=== PATIENT | female | born 2000 | race Caucasian/White ===

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

== ENCOUNTER 2021-06-30 14:24 | Emergency (ER) | payer OTHER ==
[~2021-06-30] VITALS: Wt 105.2 kg
[2021-06-30] MEDS ORDERED: CYCLOBENZAPRINE10 MG PO (17:06)
== END 2021-06-30 17:19 | disposition home or self-care (01) ==
LOC: ED 14:24
DX: S13.4XXA Sprain of ligaments of cervical spine, initial encounter (principal); V43.52XA Car driver injured in collision with other type car in traffic accident, initial encounter; Y93.89 Activity, other specified; Y92.89 Other specified places as the place of occurrence of the external cause; Y99.8 Other external cause status

== ENCOUNTER 2021-10-25 18:37 | Emergency (ER) | payer OTHER ==
[~2021-10-25] VITALS: Ht 160 cm; Wt 106.6 kg
[~2021-10-25 18:37] MED LIST changes: +CYCLOBENZAPRINE10 MG PO
== END 2021-10-25 20:11 | disposition home or self-care (01) ==
LOC: ED 18:37
DX: S93.401A Sprain of unspecified ligament of right ankle, initial encounter (principal); X50.1XXA Overexertion from prolonged static or awkward postures, initial encounter; Y93.01 Activity, walking, marching and hiking; Y92.89 Other specified places as the place of occurrence of the external cause; Y99.9 Unspecified external cause status

== ENCOUNTER 2021-12-10 09:46 | Emergency (ER) | payer OTHER | END 2021-12-10 12:25 | disposition home or self-care (01) | LOC: ED 09:46 | DX: S40.012A Contusion of left shoulder, initial encounter (principal); S20.212A Contusion of left front wall of thorax, initial encounter; Y04.2XXA Assault by strike against or bumped into by another person, initial encounter; Y93.89 Activity, other specified; Y92.128 Other place in nursing home as the place of occurrence of the external cause; Y99.0 Civilian activity done for income or pay ==

== ENCOUNTER 2021-12-15 15:52 | Emergency (ER) | payer OTHER | END 2021-12-15 17:33 | disposition home or self-care (01) | LOC: ED 15:52 | DX: U07.1 COVID-19 (principal); B34.9 Viral infection, unspecified ==

== ENCOUNTER 2022-05-17 15:40 | Emergency (ER) | payer OTHER ==
[~2022-05-17] VITALS: Wt 106.6 kg
[2022-05-17 18:24] LABS: BASO # 0.1 10*3/uL (0.0-0.1); BASO % 0.7 % (0.0-1.0); EOS # 0.1 10*3/uL (0.0-0.4); EOS % 0.5 % (1.0-4.0); HEMATOCRIT 40.1 % (37.0-47.0); LYMPH # 2.7 10*3/uL (1.3-4.4); LYMPH % 29.4 % (27.0-41.0); MEAN CELL VOLUME 85.7 fl (81.0-99.0); MEAN CORPUSCULAR HGB 28.8 pg (27.0-31.0); MEAN CORPUSCULAR HGB CONC 33.7 g/dl (33.0-37.0); MEAN PLATELET VOLUME 9.3 fl (9.6-12.3); MONO # 0.6 10*3/uL (0.1-1.0); MONO % 6.1 % (3.0-9.0); NEUT # 5.8 10*3/uL (2.3-7.9); NEUT % 62.9 % (47.0-73.0); PLATELET COUNT AUTOMATED 349 10*3/uL (130-400); RED BLOOD COUNT 4.68 10*6/uL (4.10-5.10); RED CELL DISTRI WIDTH 13.5 % (0-14.5); WHITE BLOOD COUNT 9.2 10*3/uL (4.8-10.8)
[2022-05-17 18:35] LABS: BILIRUBIN Negative (Negative); BLOOD Negative (Negative); CLARITY Clear (Clear); COLOR Yellow (Yellow); GLUCOSE Negative (Negative); KETONE Negative (Negative); LEUKO ESTERASE Negative (Negative); NITRITE Negative (Negative); PH 6.5 (4.5-8.0); SPECIFIC GRAVITY 1.015 (1.001-1.030); UROBILINOGEN 0.2 E.U./dl (0.0-1.0)
[2022-05-17 18:38] LABS: ALKALINE PHOSPHATASE 78 U/L (46-116); BUN 8 mg/dl (9-23); CHLORIDE 101 mmol/L (98-107); CREATININE 0.61 mg/dL (0.55-1.02); POTASSIUM 3.8 mmol/L (3.4-5.1); SGPT/ALT 9 U/L (10-49); SODIUM 135 mmol/L (136-145); TOTAL PROTEIN 7.7 gm/dL (6.0-8.0)
[2022-05-17 18:46] LABS: BACTERIA TRACE; WBC 0-2 wbc/hpf (0-5)
[2022-05-17] MEDS ORDERED: Ondansetron4 MG PO (19:10)
[2022-05-17] MEDS ORDERED: Fioricet 325 MG1 TAB PO (19:10)
== END 2022-05-17 20:07 | disposition home or self-care (01) ==
LOC: ED 15:40
PROVIDERS: Physician Assistant
DX: G44.89 Other headache syndrome (principal); F10.90 Alcohol use, unspecified, uncomplicated; Z20.822 Contact with and (suspected) exposure to COVID-19; M79.10 Myalgia, unspecified site; R53.83 Other fatigue

== ENCOUNTER 2022-08-03 01:51 | Emergency (ER) | payer OTHER ==
[~2022-08-03] VITALS: Ht 160 cm; Wt 104.3 kg
[~2022-08-03 01:51] MED LIST changes: +Fioricet 325 MG1 TAB PO; +Ondansetron4 MG PO
[2022-08-03] MEDS ORDERED: AMOXICILLIN500 M3 PO (02:25)
[2022-08-03] MEDS ORDERED: DEPO-PROVE150 MG/1 M IM (02:25)
[2022-08-03] MEDS ORDERED: NAPROSYN500 MG PO (03:35)
[2022-08-03] MEDS ORDERED: CYCLOBENZAPRINE10 MG PO (03:35)
== END 2022-08-03 04:00 | disposition home or self-care (01) ==
LOC: ED 01:51
DX: S29.012A Strain of muscle and tendon of back wall of thorax, initial encounter (principal); M62.830 Muscle spasm of back; Z98.890 Other specified postprocedural states; W01.0XXA Fall on same level from slipping, tripping and stumbling without subsequent striking against object, initial encounter; Y93.89 Activity, other specified; Y92.89 Other specified places as the place of occurrence of the external cause; Y99.8 Other external cause status

== ENCOUNTER 2022-10-30 12:54 | Emergency (ER) | payer OTHER ==
[~2022-10-30] VITALS: Ht 160 cm; Wt 108.9 kg
[~2022-10-30 12:54] MED LIST changes: +AMOXICILLIN500 M3 PO; +DEPO-PROVE150 MG/1 M IM; +NAPROSYN500 MG PO
== END 2022-10-30 13:54 | disposition home or self-care (01) ==
LOC: ED 12:54
DX: S93.401A Sprain of unspecified ligament of right ankle, initial encounter (principal); Z98.890 Other specified postprocedural states; X50.1XXA Overexertion from prolonged static or awkward postures, initial encounter; Y93.39 Activity, other involving climbing, rappelling and jumping off; Y92.89 Other specified places as the place of occurrence of the external cause; Y99.8 Other external cause status

== ENCOUNTER 2022-12-04 10:21 | Emergency (ER) | payer OTHER ==
[~2022-12-04] VITALS: Ht 160 cm; Wt 106.6 kg
[2022-12-04 10:54] LABS: BASO % 0.5 % (0.0-1.0); EOS % 0.2 % (1.0-4.0); HEMATOCRIT 40.3 % (37.0-47.0); LYMPH # 1.7 10*3/uL (1.3-4.4); LYMPH % 18.8 % (27.0-41.0); MEAN CELL VOLUME 85.4 fl (81.0-99.0); MEAN PLATELET VOLUME 9.6 fl (9.6-12.3); MONO # 0.6 10*3/uL (0.1-1.0); MONO % 6.5 % (3.0-9.0); NEUT # 6.5 10*3/uL (2.3-7.9); NEUT % 73.5 % (47.0-73.0); PLATELET COUNT AUTOMATED 352 10*3/uL (130-400); RED BLOOD COUNT 4.72 10*6/uL (4.10-5.10); RED CELL DISTRI WIDTH 12.6 % (0-14.5); WHITE BLOOD COUNT 8.8 10*3/uL (4.8-10.8)
[2022-12-04 11:00] LABS: BILIRUBIN Negative (Negative); BLOOD Negative (Negative); CLARITY Cloudy (Clear); COLOR Yellow (Yellow); GLUCOSE Negative (Negative); KETONE Trace (Negative); LEUKO ESTERASE 2+ (Negative); NITRITE Negative (Negative); PH 6.5 (4.5-8.0); SPECIFIC GRAVITY >= 1.030 (1.001-1.030)
[2022-12-04 11:27] LABS: ALKALINE PHOSPHATASE 73 U/L (46-116); BUN 10 mg/dl (9-23); CHLORIDE 108 mmol/L (98-107); LIPASE 28 U/L (12-53); POTASSIUM 3.7 mmol/L (3.4-5.1); TOTAL PROTEIN 7.9 gm/dL (6.0-8.0)
[2022-12-04 11:27] LABS: BACTERIA 2+
[2022-12-04 11:28] LABS: WBC 31-40 wbc/hpf (0-5)
[2022-12-04 11:32] LABS: SGPT/ALT < 7 U/L (10-49)
[2022-12-04] MEDS ORDERED: CIPRO500 MG PO (11:35)
== END 2022-12-04 11:49 | disposition home or self-care (01) ==
LOC: ED 10:21
PROVIDERS: Internal Medicine
DX: N39.0 Urinary tract infection, site not specified (principal); R11.2 Nausea with vomiting, unspecified; Z98.890 Other specified postprocedural states

== ENCOUNTER 2023-03-15 11:54 | Emergency (ER) | payer OTHER ==
[~2023-03-15] VITALS: Ht 162.5 cm; Wt 107.5 kg
[~2023-03-15 11:54] MED LIST changes: +CIPRO500 MG PO
== END 2023-03-15 15:57 | disposition home or self-care (01) ==
LOC: ED 11:54
DX: G43.909 Migraine, unspecified, not intractable, without status migrainosus (principal); R11.0 Nausea; Z98.890 Other specified postprocedural states

== ENCOUNTER 2023-04-19 12:39 | Emergency (ER) | payer OTHER ==
[~2023-04-19] VITALS: Ht 160 cm; Wt 108.9 kg
[2023-04-19] MEDS ORDERED: CYCLOBENZAPRINE10 MG PO (16:05)
== END 2023-04-19 16:12 | disposition home or self-care (01) ==
LOC: ED 12:39
DX: S29.012A Strain of muscle and tendon of back wall of thorax, initial encounter (principal); Z98.890 Other specified postprocedural states; X50.0XXA Overexertion from strenuous movement or load, initial encounter; Y93.89 Activity, other specified; Y92.89 Other specified places as the place of occurrence of the external cause; Y99.0 Civilian activity done for income or pay

== ENCOUNTER 2023-06-14 17:45 | Emergency (ER) | payer OTHER ==
[~2023-06-14] VITALS: Ht 160 cm; Wt 108.9 kg
[2023-06-14] MEDS ORDERED: AMOXICILLIN500 M2 PO (18:06)
== END 2023-06-14 18:22 | disposition home or self-care (01) ==
LOC: ED 17:45
DX: J02.9 Acute pharyngitis, unspecified (principal); Z98.890 Other specified postprocedural states

== ENCOUNTER 2023-07-26 13:07 | Emergency (ER) | payer SELFPAY ==
[~2023-07-26] VITALS: Wt 108.9 kg
== END 2023-07-26 15:45 | disposition left against medical advice (07) ==
LOC: ED 13:07
DX: M25.511 Pain in right shoulder (principal); Z53.21 Procedure and treatment not carried out due to patient leaving prior to being seen by health care provider

== ENCOUNTER 2023-10-24 07:01 | Emergency (ER) | payer SELFPAY ==
[~2023-10-24] VITALS: Ht 162.5 cm; Wt 113.4 kg
[2023-10-24] MEDS ORDERED: IBUPROFEN400 MG PO (08:30)
[2023-10-24] MEDS ORDERED: ASPERCREME LID1 EACH T (08:30)
[2023-10-24] MEDS ORDERED: TYLENOL EXTRA500 MG PO (08:30)
== END 2023-10-24 08:35 ==
LOC: ED 07:01
DX: M54.50 Low back pain, unspecified (principal); M54.6 Pain in thoracic spine; G43.909 Migraine, unspecified, not intractable, without status migrainosus; Z79.899 Other long term (current) drug therapy

== ENCOUNTER 2023-11-07 10:20 | Emergency (ER) | payer SELFPAY ==
[~2023-11-07] VITALS: Ht 160 cm; Wt 113.4 kg
[~2023-11-07 10:20] MED LIST changes: +ASPERCREME LID1 EACH T; +IBUPROFEN400 MG PO; +TYLENOL EXTRA500 MG PO
[2023-11-07] MEDS ORDERED: CYCLOBENZAPRINE5 M3 PO (11:27)
== END 2023-11-07 11:32 | disposition home or self-care (01) ==
LOC: ED 10:20
DX: M54.6 Pain in thoracic spine (principal); G89.29 Other chronic pain; Z79.899 Other long term (current) drug therapy; Z98.890 Other specified postprocedural states

== ENCOUNTER 2023-11-18 11:36 | Emergency (ER) | payer SELFPAY ==
[~2023-11-18] VITALS: Ht 160 cm; Wt 113.4 kg
[~2023-11-18 11:36] MED LIST changes: +CYCLOBENZAPRINE5 M3 PO
[2023-11-18] MEDS ORDERED: ZANAFLEX4 MG PO (14:10)
[2023-11-18] MEDS ORDERED: MELOXICAM15 MG PO (14:10)
== END 2023-11-18 14:25 | disposition home or self-care (01) ==
LOC: ED 11:36
DX: M62.830 Muscle spasm of back (principal); R10.13 Epigastric pain; Z98.890 Other specified postprocedural states

== ENCOUNTER 2023-11-27 02:48 | Emergency (ER) | payer SELFPAY ==
[~2023-11-27] VITALS: Ht 160 cm; Wt 113.4 kg
[~2023-11-27 02:48] MED LIST changes: +MELOXICAM15 MG PO; +ZANAFLEX4 MG PO
[2023-11-27] MEDS ORDERED: Ondansetron Hydrochloride 4 MG TAB PO ONE (03:35)
[2023-11-27] MEDS ORDERED: LORazepam 1 MG TAB PO ONE (04:15)
[2023-11-27] MEDS ORDERED: Promethazine Hydrochloride 25 MG/ML VIAL IM ONE (06:05)
[2023-11-27] MEDS ORDERED: MEPERIDINE HYDROCHLORIDE 25 MG/1 ML VIAL IM ONE (06:05)
== END 2023-11-27 06:14 | disposition home or self-care (01) ==
LOC: ED 02:48
DX: G89.29 Other chronic pain (principal); M54.9 Dorsalgia, unspecified; F41.9 Anxiety disorder, unspecified; Z98.890 Other specified postprocedural states

== ENCOUNTER 2024-02-10 13:48 | Emergency (ER) | payer SELFPAY ==
[~2024-02-10] VITALS: Ht 160 cm; Wt 113.4 kg
[2024-02-10] MEDS ORDERED: METHOCARBAMOL750 M1 PO (14:20)
[2024-02-10] MEDS ORDERED: AMOX-CLAV 875-1 EACH PO (14:20)
== END 2024-02-10 14:34 | disposition home or self-care (01) ==
LOC: ED 13:48
DX: J02.0 Streptococcal pharyngitis (principal); M54.6 Pain in thoracic spine; Z98.890 Other specified postprocedural states; Z87.891 Personal history of nicotine dependence

== ENCOUNTER 2024-05-18 14:02 | Emergency (ER) | payer SELFPAY ==
[~2024-05-18] VITALS: Ht 160 cm; Wt 111.1 kg
[~2024-05-18 14:02] MED LIST changes: +AMOX-CLAV 875-1 EACH PO; +METHOCARBAMOL750 M1 PO
[2024-05-18] MEDS ORDERED: Ondansetron Hydrochloride 4 MG TAB PO ONE (14:20)
[2024-05-18] MEDS ORDERED: AVPAK AZITHROM250 MG PO (15:41)
== END 2024-05-18 16:00 | disposition home or self-care (01) ==
LOC: ED 14:02
DX: J18.9 Pneumonia, unspecified organism (principal); Z20.822 Contact with and (suspected) exposure to COVID-19; Z98.890 Other specified postprocedural states

== ENCOUNTER 2024-06-04 11:50 | Emergency (ER) | payer SELFPAY ==
[~2024-06-04] VITALS: Ht 160 cm; Wt 114.3 kg
[~2024-06-04 11:50] MED LIST changes: +AVPAK AZITHROM250 MG PO
[2024-06-04] MEDS ORDERED: Cyclobenzaprine Hydrochlorid 10 MG TAB PO ONE (12:45)
== END 2024-06-04 12:48 | disposition home or self-care (01) ==
LOC: ED 11:50
DX: G89.29 Other chronic pain (principal); M54.50 Low back pain, unspecified; F41.9 Anxiety disorder, unspecified; G43.909 Migraine, unspecified, not intractable, without status migrainosus

== ENCOUNTER 2024-08-01 08:11 | Emergency (ER) | payer SELFPAY ==
[~2024-08-01] VITALS: Ht 160 cm; Wt 113.4 kg
[2024-08-01] MEDS ORDERED: AMOX-CLAV 875-1 EACH PO (08:56)
== END 2024-08-01 09:01 | disposition home or self-care (01) ==
LOC: ED 08:11
DX: J02.0 Streptococcal pharyngitis (principal); Z79.899 Other long term (current) drug therapy

== ENCOUNTER 2025-02-25 14:19 | Emergency (ER) | payer SELFPAY ==
[~2025-02-25] VITALS: Ht 152.4 cm; Wt 114.3 kg
[2025-02-25 17:32] LABS: BILIRUBIN Negative (Negative); BLOOD Negative (Negative); CLARITY Clear (Clear); COLOR Yellow (Yellow); KETONE Negative (Negative); LEUKO ESTERASE Negative (Negative); NITRITE Negative (Negative); PH 6.0 (4.5-8.0); SPECIFIC GRAVITY 1.015 (1.001-1.030); UROBILINOGEN 0.2 E.U./dl (0.0-1.0)
[2025-02-25 17:46] LABS: BACTERIA 1+; MUCOUS TRACE; RBC 0-2 rbc/hpf (0-2); WBC 0-2 wbc/hpf (0-5)
[2025-02-25] MEDS ORDERED: METHOCARBAMOL 750 MG TAB PO ONE (17:50)
[2025-02-25] MEDS ORDERED: PREDNISONE50 MG PO (17:50)
[2025-02-25] MEDS ORDERED: METHOCARBAMOL500 M1 PO (17:50)
[2025-02-25] MEDS ORDERED: Water, Sterile 10 ML VIAL ONE (18:19)
== END 2025-02-25 18:01 | disposition home or self-care (01) ==
LOC: ED 14:19
PROVIDERS: Nurse Practitioner Family
DX: S33.5XXA Sprain of ligaments of lumbar spine, initial encounter (principal); M62.830 Muscle spasm of back; Z79.899 Other long term (current) drug therapy; X50.1XXA Overexertion from prolonged static or awkward postures, initial encounter; Y93.89 Activity, other specified; Y92.89 Other specified places as the place of occurrence of the external cause; Y99.8 Other external cause status

== ENCOUNTER 2025-03-26 17:51 | Emergency (ER) | payer SELFPAY ==
[~2025-03-26] VITALS: Ht 160 cm; Wt 114.3 kg
[~2025-03-26 17:51] MED LIST changes: +METHOCARBAMOL500 M1 PO; +PREDNISONE50 MG PO
[2025-03-26] MEDS ORDERED: GUAIFENESIN200 MG PO (19:15)
== END 2025-03-26 19:11 | disposition home or self-care (01) ==
LOC: ED 17:51
DX: B34.9 Viral infection, unspecified (principal); F41.9 Anxiety disorder, unspecified; Z87.440 Personal history of urinary (tract) infections